=== PATIENT | female | born 1970 | race Caucasian/White ===

== ENCOUNTER 2017-07-28 18:53 | Emergency (ER) | payer SELFPAY ==
--- NOTE | 2017-07-28 19:20 | ER Document Report ---
ED Medical Screen (RME) - General Chief Complaint: Abdominal Pain Stated Complaint: ABDOMINAL PAIN AND BACK PAIN Time Seen by Provider: 07/28/17 19:17 Mode of Arrival: Ambulatory Information source: Patient TRAVEL OUTSIDE OF THE U[place] IN LAST 30 DAYS: No - HPI Patient complains to provider of: Left upper quadrant abdominal pain Notes: 07/28/17 19:20 Patient is a 47-year-old female presenting to the emergency room today complaining of left upper quadrant abdominal pain this been going on for several months, however it has worsened recently, and today she has had several episodes of diarrhea as well - Related Data Allergies/Adverse Reactions: lisinopril Allergy (Verified 07/28/17 18:55) sulfamethoxazole [From ] Allergy (Verified 07/28/17 18:55) Hives trimethoprim [From ] Allergy (Verified 07/28/17 18:55) Hives Past Medical History - Past Medical History Cardiac Medical History: Denies: Hx Coronary Artery Disease, Hx Hypertension Pulmonary Medical History: Denies: Hx Asthma Endocrine Medical History: Denies: Hx Diabetes Mellitus Type 1, Hx Diabetes Mellitus Type 2 Renal/ Medical History: Denies: Hx Peritoneal Dialysis - Immunizations Hx Diphtheria, Pertussis, Tetanus Vaccination: Yes Physical Exam - Vital signs Vitals: Temp Pulse Resp BP Pulse Ox 98.7 F 80 16 176/82 H 99 07/28/17 18:56 07/28/17 18:56 07/28/17 18:56 07/28/17 18:56 07/28/17 18:56 Course - Vital Signs Vital signs: Temp Pulse Resp BP Pulse Ox 98.7 F 80 16 176/82 H 99 07/28/17 18:56 07/28/17 18:56 07/28/17 18:56 07/28/17 18:56 07/28/17 18:56
[2017-07-28 20:36] LABS: ABSOLUTE BASOPHILS # (AUTO) 0.1 10^3/uL (0.0-0.2); ABSOLUTE EOSINOPHILS # (AUTO) 0.1 10^3/uL (0.0-0.6); ABSOLUTE LYMPHOCYTES (AUTO) 2.7 10^3/uL (0.5-4.7); ABSOLUTE MONOCYTES (AUTO) 0.6 10^3/uL (0.1-1.4); ABSOLUTE NEUT (AUTO) 6.7 10^3/uL (1.7-8.2); BASOPHILS % (AUTO) 0.5 % (0-2); EOSINOPHILS % (AUTO) 1.3 % (0-6); HEMATOCRIT 39.2 % (36.0-47.0); HEMOGLOBIN 13.7 g/dL (12.0-15.5); HGB HCT DIFFERENCE 1.9; LYMPHOCYTES % (AUTO) 26.4 % (13-45); MEAN CORPUSCULAR HEMOGLOBIN 32.1 pg (27.0-33.4); MEAN CORPUSCULAR VOLUME 92 fl (80-97); RED BLOOD COUNT 4.28 10^6/uL (3.72-5.28); SEGMENTED NEUTROPHILS % (AUTO) 65.8 % (42-78); WHITE BLOOD COUNT 10.2 10^3/uL (4.0-10.5)
[2017-07-28 20:42] LABS: APPEARANCE,URINE CLEAR; BILIRUBIN,URINE NEGATIVE (NEGATIVE); GLUCOSE, URINE NEGATIVE (NEGATIVE); KETONES,URINE NEGATIVE (NEGATIVE); LEUKOCYTE ESTERASE,URINE NEGATIVE (NEGATIVE); NITRITE,URINE NEGATIVE (NEGATIVE); PROTEIN,URINE NEGATIVE (NEGATIVE)
[2017-07-28 20:45] LABS: ALANINE AMINOTRANSFERASE 31 U/L (9-52); ALBUMIN 4.3 g/dL (3.5-5.0); ALKALINE PHOSPHATASE 81 U/L (38-126); ANION GAP 14 (5-19); ASPARTATE AMINO TRANSFERASE 17 U/L (14-36); BILIRUBIN,DIRECT 0.3 mg/dL (0.0-0.4); BILIRUBIN,TOTAL 0.5 mg/dL (0.2-1.3); BLOOD UREA NITROGEN 11 mg/dL (7-20); CALCIUM 9.8 mg/dL (8.4-10.2); CARBON DIOXIDE 26 mmol/L (22-30); CHLORIDE 104 mmol/L (98-107); CREATININE RESULT 0.76 mg/dL (0.52-1.25); GLUCOSE 94 mg/dL (75-110); LIPASE 197.5 U/L (23-300); POTASSIUM 3.8 mmol/L (3.6-5.0); SODIUM 143.6 mmol/L (137-145)
--- NOTE | 2017-07-28 21:26 | ER Document Report ---
ED General - General Chief Complaint: Abdominal Pain Stated Complaint: ABDOMINAL PAIN AND BACK PAIN Time Seen by Provider: 07/28/17 19:17 Mode of Arrival: Ambulatory Notes: Patient is a 47-year-old female presents emergency department complaining of left lower chest/left upper quadrant pain. Patient states that it only hurts with palpation and with certain movements and has been bothering her for 2 months She states that [place] is required to do heavy lifting quite frequently. She denies any trauma to this area. States she did go to the health department and they did a abdominal workup on her there and she was told that she did not have any concerns. She states she has been taking Motrin at home which helped with the pain is only worse with certain movements. Otherwise she denies any recent trauma or falls. TRAVEL OUTSIDE OF THE [place] IN LAST 30 DAYS: No - Related Data Allergies/Adverse Reactions: lisinopril Allergy (Verified 07/28/17 18:55) sulfamethoxazole [From ] Allergy (Verified 07/28/17 18:55) Hives trimethoprim [From ] Allergy (Verified 07/28/17 18:55) Hives Past Medical History - General Information source: Patient - Social History Smoking Status: Unknown if Ever Smoked Family History: Reviewed & Not Pertinent - Past Medical History Cardiac Medical History: Denies: Hx Coronary Artery Disease, Hx Hypertension Pulmonary Medical History: Denies: Hx Asthma Endocrine Medical History: Denies: Hx Diabetes Mellitus Type 1, Hx Diabetes Mellitus Type 2 Renal/ Medical History: Denies: Hx Peritoneal Dialysis - Immunizations Hx Diphtheria, Pertussis, Tetanus Vaccination: Yes Review of Systems - Review of Systems Constitutional: No symptoms reported Cardiovascular: See HPI Respiratory: See HPI -: Yes All other systems reviewed and negative Physical Exam - Vital signs Vitals: Temp Pulse Resp BP Pulse Ox 98.7 F 80 16 176/82 H 99 07/28/17 18:56 07/28/17 18:56 07/28/17 18:56 07/28/17 18:56 07/28/17 18:56 - Notes Notes: PHYSICAL EXAM GENERAL: Alert, interacts well. LUNGS: Clear to auscultation bilaterally, no wheezes, rales, or rhonchi. No respiratory distress. Tenderness over left 11rib without deformity, crepitus, ecchymosis HEART: Regular rate and rhythm. No murmurs, gallops, or rubs. ABDOMEN: Soft, nondistended, nontender. No guarding, rebound, or rigidity.. Bowel sounds present in all 4 quadrants. EXTREMITIES: Moves all 4 extremities spontaneously. No edema, radial and dorsalis pedis pulses 2/4 bilaterally. No cyanosis. NEUROLOGICAL: Alert and oriented x4. Normal speech. PSYCH: Normal affect, normal mood. SKIN: Warm, dry, normal turgor. No rashes or lesions noted. Course - Re-evaluation Re-evalutation: 07/28/17 21:00 Patient is a 47-year-old female who is hemodynamic stable, no acute distress afebrile. CMP ordered in triage for concerns for abdominal pathology. No evidence of leukocytosis or anemia. No evidence of electrolyte abnormalities, hepatic, renal dysfunction. Physical exam is consistent with musculoskeletal injury of the rib cage likely due to patient's line of work. Given that this patient has been suffering from the symptoms for approximately 2 weeks's been worse over the past couple of days with stable vital signs, I think it is appropriate to discharge this patient home with cautionary measures. Patient agrees with plan. No evidence of fracture on x-ray. - Vital Signs Vital signs: Temp Pulse Resp BP Pulse Ox 98.2 F 84 17 159/79 H 100 07/28/17 23:12 07/28/17 23:12 07/28/17 23:12 07/28/17 23:12 07/28/17 23:12 - Laboratory Result Diagrams: 07/28/17 20:09 07/28/17 20:09 Laboratory results interpreted by me: 07/28/17 20:09 Urine Blood SMALL H Urine Urobilinogen 4.0 H - Diagnostic Test Radiology reviewed: Image reviewed, Reports reviewed Discharge - Discharge Clinical Impression: Rib pain on left side Condition: Good Disposition: HOME, SELF-CARE Instructions: Rib Injuries and Fractures ([facility]) Additional Instructions: Please continue to take 600mg of Motrin every 8-12 hours as needed for pain Please be sure to limit your lifting to no more then 15 pounds for about two weeks Prescriptions: Acetaminophen with Codeine [Acetaminophen-Cod #3 Tablet] 1 each PO BIDP PRN #10 tablet PRN Reason: Forms: Special Work Note
--- NOTE | 2017-07-28 22:22 | RADIOLOGY REPORT (SQ) ---
EXAM DESCRIPTION: RIBS LEFT W/PA CHEST COMPLETED DATE/TIME: 07/28/2017 9:59 pm REASON FOR STUDY: rib pain over 10th/11th rib COMPARISON: None. TECHNIQUE: Frontal view of the chest and additional views of the left ribs acquired. NUMBER OF VIEWS: 3 LIMITATIONS: None. FINDINGS: FRONTAL CXR: No pneumothorax. No pleural effusion. No atelectasis or infiltrates. RIBS: No displaced rib fractures. No lytic or blastic bony lesions. OTHER: No other significant finding. IMPRESSION: NO PNEUMOTHORAX. NO DISPLACED RIB FRACTURES. COMMENT: SITE OF TRAUMA/COMPLAINT MARKED/STAMP COMPLETED: Yes TECHNICAL DOCUMENTATION: JOB ID: [id number] [employer]- All Rights Reserved
[2017-07-28 23:13] VITALS: BP 159/79
== END 2017-07-28 23:12 | disposition home or self-care (01) ==
LOC: ER 18:53
DX: R07.81 Pleurodynia (principal); R10.12 Left upper quadrant pain; Z88.3 Allergy status to other anti-infective agents
CPT/HCPCS: 36415; 80053; 81001; 83690; 85025; 99284

== ENCOUNTER 2017-09-03 11:27 | Emergency (ER) | payer SELFPAY ==
[2017-09-03] MEDS ORDERED: HYDROCODONE/ACETAMINOPHEN 5-325 MG 6 TAB/DSPK PO PRN (12:51)
--- NOTE | 2017-09-03 12:59 | ER Document Report ---
ED Oral Problem - General Chief Complaint: Toothache Stated Complaint: MOUTH PAIN Time Seen by Provider: 09/03/17 12:35 Mode of Arrival: Ambulatory Information source: Patient Notes: 47-year-old female presented to ED for complaint of infected left upper jaw with swelling to her face. She said the bad tooth is been going on for months and months but she has not had the money to go to the dentist. She states she tried to get into the dentist today but there was nobody available. States she is not able to get into the dentist now to the middle of September. TRAVEL OUTSIDE OF THE [place] IN LAST 30 DAYS: No - HPI Patient complains to provider of: Swelling of face, Toothache Onset: Other - Many months worse over the last couple days Onset: Gradual Quality of pain: Sharp, Throbbing Severity: Severe Pain Level: 5 Swollen jaw/face: Moderate Associated symptoms: Dental decay, Facial pain, Toothache, Other Similar symptoms previously: Yes Recently seen / treated by doctor/dentist: No - Related Data Allergies/Adverse Reactions: lisinopril Allergy (Verified 09/03/17 11:31) sulfamethoxazole [From Septra] Allergy (Verified 09/03/17 11:31) Hives trimethoprim [From Septra] Allergy (Verified 09/03/17 11:31) Hives Past Medical History - General Information source: Patient - Social History Smoking Status: Current Every Day Smoker Cigarette use (# per day): Yes Chew tobacco use (# tins/day): No Smoking Education Provided: Yes - Less than 2 minutes Frequency of alcohol use: None Drug Abuse: None Lives with: Family Family History: Reviewed & Not Pertinent Patient has suicidal ideation: No Patient has homicidal ideation: No - Past Medical History Cardiac Medical History: Reports: Hx Hypertension Pulmonary Medical History: Reports: None EENT Medical History: Reports: None Neurological Medical History: Reports: None Endocrine Medical History: Reports: None Renal/ Medical History: Reports: None Malignancy Medical History: Reports: None GI Medical History: Reports: None Musculoskeltal Medical History: Reports None Skin Medical History: Reports None Psychiatric Medical History: Reports: None Traumatic Medical History: Reports: None Infectious Medical History: Reports: None Surgical Hx: Negative Past Surgical History: Reports: None - Immunizations Hx Diphtheria, Pertussis, Tetanus Vaccination: Yes Review of Systems - Review of Systems Constitutional: No symptoms reported EENT: Mouth pain, Dental problem, Other - Patient swelling to the right side up to the cheek Cardiovascular: No symptoms reported Respiratory: No symptoms reported Gastrointestinal: No symptoms reported Genitourinary: No symptoms reported Female Genitourinary: No symptoms reported Musculoskeletal: No symptoms reported Skin: No symptoms reported Hematologic/Lymphatic: No symptoms reported Neurological/Psychological: No symptoms reported -: Yes All other systems reviewed and negative Physical Exam - Vital signs Vitals: Temp Pulse Resp BP Pulse Ox 97.8 F 57 L 19 197/84 H 100 09/03/17 11:31 09/03/17 11:31 09/03/17 11:31 09/03/17 11:31 09/03/17 11:31 Interpretation: Normal - General General appearance: Appears well, Alert - HEENT Head: Normocephalic, Atraumatic Eyes: Normal Pupils: PERRL Ears: Normal External canal: Normal Tympanic membrane: Normal Sinus: Normal Nasal: Swelling, Clear rhinorrhea Mouth/Lips: Caries, Other - Patient swelling to the right side of the cheek Teeth diagram: 1 - Very decayed teeth with swelling to the right side of the face up to the cheek mild swelling to the upper jaw Pharynx: Normal Neck: Anterior cervical chain - Respiratory Respiratory status: No respiratory distress Chest status: Nontender Breath sounds: Normal Chest palpation: Normal - Cardiovascular Rhythm: Regular Heart sounds: Normal auscultation Murmur: No - Abdominal Inspection: Normal Distension: No distension Bowel sounds: Normal Tenderness: Nontender Organomegaly: No organomegaly - Back Back: Normal, Nontender - Extremities General upper extremity: Normal inspection, Nontender, Normal color, Normal ROM , Normal temperature General lower extremity: Normal inspection, Nontender, Normal color, Normal ROM , Normal temperature, Normal weight bearing. No: Denise's sign - Neurological Neuro grossly intact: Yes Cognition: Normal Orientation: AAOx4 Sandra Coma Scale Eye Opening: Spontaneous Sandra Coma Scale Verbal: Oriented [place] Coma Scale Motor: Obeys Commands [place] Coma Scale Total: 15 Speech: Normal Motor strength normal: LUE, RUE, LLE, RLE Sensory: Normal - Psychological Associated symptoms: Normal affect, Normal mood - Skin Skin Temperature: Warm Skin Moisture: Dry Skin Color: Normal Course - Re-evaluation Re-evalutation: 09/03/17 20:57 Patient was treated with a Paragonah dispense pack and discharged home with prescription for Augmentin per her request. The pharmacist call later and stated that she could not afford the Augmentin and wanted another prescription. While patient was in the emergency room she states she did not want clindamycin or amoxicillin. I discussed with the pharmacist that we could do Penicillin VK and I would contact the patient. Before got off the phone with the pharmacist the patient was on another line and I told her that I would write the Penicillin VK and she stated okay. I spoke with the pharmacist again and ordered the Penicillin VK via telephone. - Vital Signs Vital signs: Temp Pulse Resp BP Pulse Ox 98.3 F 58 L 16 195/82 H 100 09/03/17 13:20 09/03/17 13:20 09/03/17 13:20 09/03/17 13:20 09/03/17 13:20 Discharge - Discharge Clinical Impression: Pain due to dental caries Condition: Stable Disposition: HOME, SELF-CARE Additional Instructions: Call Dr. Harding's office today after 2 and schedule an appointment for tomorrow I spoke with Dr. harding himself he said to tell his staff to schedule your appointment tomorrow afternoon TOOTHACHE: Your pain is due to dental decay. The tooth must be repaired in order for you to feel better. You will, therefore, be referred to a dentist. We do not have dentists on the staff at [facility]. Severe swelling or drainage around a tooth usually means a dental abscess. This also requires evaluation and treatment by the dentist, but antibiotics may be prescribed while awaiting dental treatment. You should be rechecked immediately if you develop major swelling of the face, increasing pain, a lump in the jaw or gums, headache, difficulty swallowing, or fever. ORAL NARCOTIC MEDICATION: You have been given a Paragon[place] dispense pack for pain control. This medication is a narcotic. It's best taken with food, as nausea can result if taken on an empty stomach. Don't operate machinery or drive within six hours of taking this medication. Do not combine this medicine with alcohol, or with any medication which can cause sedation (such as cold tablets or sleeping pills) unless you get permission from the physician. Narcotics tend to cause constipation. If possible, drink plenty of fluids and eat a diet high in fiber and fruits. Please be aware that prescription narcotics also have the potential for abuse. People become addicted to these medications because of the general sense of wellbeing that they induce. This feeling along with a significant reduction in tension, anxiety, and aggression provides a stimulating seductive quality to these drugs. Once your pain is under control, we encourage you to discard your unused narcotics. Augmentin Augmentin is a mixture of amoxicillin and clavulanate. Amoxicillin is a member of the penicillin family. It covers the germs likely to cause ear, bronchial, and urinary infections better than plain penicillin. The addition of clavulanate allows it to cover staph infections of the skin, as well as resistant cases of ear and sinus infections. Your physician has chosen Augmentin for you because of the special nature of your situation. Augmentin is best taken with meals. Nausea after taking the medication is rare, but can occur. Diarrhea can occur, particularly in small children. Vaginal yeast infections, and oral thrush in infants are also common. Contact your physician if these problems occur. Allergy to penicillins is common. If you have had an allergic reaction to any drug of the penicillin family, you should never take any other penicillin. Notify your doctor at once if you develop hives, shortness of breath, swelling, or faintness. FOLLOW-UP CARE: You have been referred for follow-up care to the dentists listed below. Call the dentists office for an appointment as you were instructed or within the next two days. If you experience worsening or a significant change in your symptoms, notify the physician immediately or return to the Emergency Department at any time for re-evaluation. [facility] [address] [place], [place] Saturday mornings, by appointment [facility] [address] [place] [address] [facility] [address] [facility].. [facility] [address] [facility] [address] [email or web address] [address] [place] [address] Saturday- 8:00am to 5:00 pm Will see patients from other [facility]. Charges based on income and family size and accepts Medicare, Medicaid, and Insurances Will pull molars [facility] [id number] Hours of Operation 8:00 am - 4:30 pm weekdays The following dental offices accept Medicaid: [facility] [address] Dr. Robertson Mike Espinosa Lutsavage, and [place] oral surgery Dr. Parish ([place]) Dr. Ceballos ([place]) [facility] Drs. Heredia and Clifton ([place]) Dr. Jones ([place]) [facility], [facility] Dr. Bowling ([place]) Drs. Eubanks and ([place]) Medicaid Care Line Prescriptions: Amox Tr/Potassium Clavulanate [Augmentin 875-125 Tablet] 1 tab PO BID 10 Days tablet Forms: Elevated Blood Pressure, Return to Work Referrals: TRACY HARDING DDS [ACTIVE STAFF] - Follow up as needed
[2017-09-03 13:21] VITALS: BP 195/82
== END 2017-09-03 13:20 | disposition home or self-care (01) ==
LOC: ER 11:27
DX: K08.89 Other specified disorders of teeth and supporting structures (principal); K02.9 Dental caries, unspecified; R68.84 Jaw pain; F17.210 Nicotine dependence, cigarettes, uncomplicated
CPT/HCPCS: 99282

== ENCOUNTER 2018-12-29 20:16 | Emergency (ER) | payer SELFPAY ==
[2018-12-29 21:00] VITALS: BP 157/84
== END 2018-12-30 01:20 | disposition left against medical advice (07) ==
LOC: ER 20:16
DX: Z53.21 Procedure and treatment not carried out due to patient leaving prior to being seen by health care provider (principal)